=== PATIENT | female | born 1970 | race Caucasian/White ===

== ENCOUNTER 2016-11-10 08:16 | Outpatient (CLI) ==
[2015-05-29 17:58] VITALS: BMI 27.4
[2016-11-10 08:34] LABS: BASOPHILS # (AUTO) 0.1 K/uL (0-0.2); BASOPHILS % (AUTO) 1.1 % (0.0-3.0); EOSINOPHILS # (AUTO) 0.1 K/ul (0.0-0.7); EOSINOPHILS % (AUTO) 2.3 % (0.0-7.0); HEMATOCRIT 41.2 % (37.0-47.0); HEMOGLOBIN 14.1 g/dl (12.0-16.0); IMMATURE GRANULOCYTE % (AUTO) 0.4 % (0.0-5.0); LYMPHOCYTES # (AUTO) 1.6 K/uL (0.60-3.4); MEAN CORPUSCULAR HEMOGLOBIN 30.3 pg (27.0-31.0); MEAN CORPUSCULAR HGB CONC 34.2 (31.8-35.4); MEAN CORPUSCULAR VOLUME 88.6 fl (81.0-99.0); MONOCYTES # (AUTO) 0.6 K/uL (0.4-2.0); MONOCYTES % (AUTO) 10.7 (0-10); NEUTROPHILS # (AUTO) 2.9 K/ul (2.0-6.9); NEUTROPHILS % (AUTO) 55.5; PLATELET COUNT 299 10^3/uL (140-440); RED BLOOD COUNT 4.65 10^6/ul (4.20-5.40); WHITE BLOOD COUNT 5.23 K/ul (4.6-10.2)
[2016-11-10 09:17] LABS: ALBUMIN 3.7 g/dL (3.4-5.0); ALBUMIN/GLOBULIN RATIO 1.09; BILIRUBIN,TOTAL 0.45 mg/dL (0.00-1.20); BUN/CREATININE RATIO 17.5; CALCIUM 9.7 mg/dL (8.2-10.2); CREATININE 0.8 mg/dL (0.60-1.30); TOTAL PROTEIN 7.1 g/dL (6.4-8.2)
== END 2016-11-10 08:17 | disposition home or self-care (01) ==
LOC: LAB 08:16
PROVIDERS: ATTEND Physician Assistant
DX: E66.9 Obesity, unspecified (principal)
CPT/HCPCS: 36415; 80053; 80061; 84443; 85025

== ENCOUNTER 2018-09-25 07:48 | Day surgery (SDC) ==
[2015-05-29 17:58] VITALS: BMI 27.4
[2018-09-25 08:17] VITALS: TEMP 97.2
[2018-09-25] MEDS ORDERED: LIDOCAINE 1% 20 ML MDV ID STA (08:18)
[2018-09-25] MEDS ORDERED: LIDOCAINE 1% 20 ML MDV ID ONE (08:33)
[2018-09-25] MEDS ORDERED: DIPRIVAN 20 ML VIAL IVP ONE (09:55)
[2018-09-25] MEDS ORDERED: VERSED ONE (09:55)
[2018-09-25 11:01] VITALS: BP 113/74
--- NOTE | 2018-09-26 10:58 | OP ---
INDICATIONS FOR PROCEDURE: 48-year-old female presents for screening colon examination. Her mother had colon cancer in her 60s and her brother had colon polyps in his 40s. MEDICATIONS: SEE ANESTHESIA NOTES. PROCEDURE: COLONOSCOPY, SNARE POLYPECTOMY. REPORT: The risks, benefits, alternatives and limitations were discussed in detail with the patient. Informed consent was obtained. After adequate sedation was achieved, a digital rectal exam revealed good tone, no masses. The colonoscope was introduced into the rectum and advanced under direct visual guidance to the cecum. The cecum was identified by the appendiceal orifice and IC valve. I then slowly withdrew the scope in a circumferential manner examining the mucosa quite carefully. I looked on the proximal and distal side of folds and flexures as best as possible. I was able to retroflex the scope in the right colon as well as the left colon to increase visualization. In the transverse colon there was a small diminutive 4 or 5 mm polyp. I removed this by snare technique. The remaining colon was unremarkable including on the retroflex view of the anal canal. The prep was good. The withdrawal time was 9 minutes and 47 seconds. The patient tolerated the procedure well with stable vital signs and pulse oximetry throughout. IMPRESSION: 1. SMALL DIMINUTIVE POLYP SUCCESSFULLY REMOVED. RECOMMENDATIONS: 1. High fiber diet. 2. Office visit as needed. 3. Await polyp pathology results. If everything is benign as expected, I recommend a colonoscopy examination again in five years, sooner if signs or symptoms would indicate otherwise. CELSO
== END 2018-09-25 11:00 | disposition home or self-care (01) ==
LOC: SURG 07:48
PROVIDERS: ATTEND Internal Medicine Gastroenterology
DX: Z80.0 Family history of malignant neoplasm of digestive organs (principal); Z83.71 Family history of colonic polyps; K63.5 Polyp of colon; D12.3 Benign neoplasm of transverse colon